=== PATIENT | female | born 1990 | race Caucasian/White ===

== ENCOUNTER → 2019-03-06 11:29 | Outpatient (CLI) | payer BC, SELFPAY ==
--- NOTE | 2019-03-06 12:24 | US_ITS ---
PROCEDURE: US TRANSVAGINAL CLINICAL INDICATION: LLQ PAIN, LT OVARIAN CYST COMPARISON: No exams were available for comparison FINDINGS: Uterus is in the and measures 7.7 x 2.4 x 4.0 centimeters. Endometrial stripe is 3.2 millimeters. There is no fluid in the cul-de-sac. Right ovary is 3.1 x 2.1 x 2.0 centimeters with small follicles and normal blood flow. Left ovary is 2.8 x 1.5 x 1.9 centimeters with a few small follicles and normal blood flow. IMPRESSION: No acute process. Bilateral ovarian follicles. Dictated by: Jasbir Shah 03/06/2019 14:10 Electronically signed by Jasbir Shah in [facility] 03/06/2019 14:10
== END ==
PROVIDERS: PCP Family Medicine; Visit Provider Family Medicine
DX: R10.32 Left lower quadrant pain (principal); N83.202 Unspecified ovarian cyst, left side
CPT/HCPCS: 76830

== ENCOUNTER → 2019-04-04 14:51 | Outpatient (CLI) | payer BC, SELFPAY ==
--- NOTE | 2019-04-04 14:58 | CT_ITS ---
PROCEDURE: CT ABDOMEN PELVIS WO CON CLINICAL INDICATION: ABD PAIN Suprapubic and left lower quadrant pain COMPARISON: No exams were available for comparison TECHNIQUE: Axial images obtained with sagittal and coronal reformats. All CT scans at the facility use one or more dose reduction, viz: automated exposure control, ma/kV adjustment per patient size (including targeted exams where dose is matched to indication, i.e. head), or iterative reconstruction technique. FINDINGS: LOWER THORAX: No acute finding ABDOMEN & PELVIS: The liver, spleen, adrenal glands, pancreas, gallbladder, and kidneys have an unremarkable unenhanced CT appearance. There is a mild amount of retained colonic feces. No intestinal obstruction or free air is evident. No evidence of appendicitis. There is some mild stranding of the fat in the left pelvic region in the left adnexal area. There is some mild stranding of the fat also in the cul-de-sac. Etiology of this is undetermined. Study is somewhat limited without IV and oral contrast. Differential diagnosis would include some mild diverticulitis however, no diverticula are apparent. Pelvic inflammatory disease would be considered as well. If symptoms persist, consider repeat exam with IV and oral contrast. No acute bony findings. IMPRESSION: 1. There is mild stranding of the fat in the left adnexal region and cul-de-sac area. Etiology is indeterminate and could be related to pelvic inflammatory disease or even diverticulitis.. Consider repeat exam with IV and oral contrast for further evaluation. 2. Mild amount of retained colonic feces Dictated by: Prashanth Davenport MD 04/04/2019 16:04 Electronically signed by Prashanth Davenport MD in [facility] 04/04/2019 16:04
== END ==
PROVIDERS: PCP Family Medicine; Visit Provider Emergency Medicine
DX: R10.2 Pelvic and perineal pain (principal); R10.9 Unspecified abdominal pain
CPT/HCPCS: 74176

== ENCOUNTER → 2019-04-10 08:25 | Outpatient (CLI) | payer BC, SELFPAY ==
--- NOTE | 2019-04-10 08:30 | CT_ITS ---
PROCEDURE: CT ABDOMEN PELVIS W CON CLINICAL INDICATION: Mild stranding of the fat in the left pelvic region Suprapubic and left lower quadrant pain, follow-up abnormal unenhanced CT of the pelvis with stranding of the fat in the left pelvic region. COMPARISON: CT ABDOMEN PELVIS WO CON from 04/04/2019 TECHNIQUE: IV Contrast: 75ML OPTIRAY 350 Oral Contrast 450ml Redicat Axial images obtained with sagittal and coronal reformats. All CT scans at the facility use one or more dose reduction, viz: automated exposure control, ma/kV adjustment per patient size (including targeted exams where dose is matched to indication, i.e. head), or iterative reconstruction technique. FINDINGS: LOWER THORAX: No acute finding ABDOMEN & PELVIS: The liver, spleen, pancreas, adrenal glands, and kidneys show no acute finding. No intestinal obstruction or free air. No evidence of appendicitis or diverticulitis. No pelvic mass, abnormal fluid collection, or focal inflammatory change of the pelvis. No acute bony anomalies.. The previously noted stranding of the fat in the left pelvic region has improved. IMPRESSION: 1. No acute abdominal or pelvic findings. 2. Previously noted inflammatory changes in the left pelvic region have improved. Dictated by: Prashanth Davenport MD 04/11/2019 08:23 Electronically signed by Prashanth Davenport MD in [facility] 04/11/2019 08:23
== END ==
PROVIDERS: PCP Family Medicine; Visit Provider Emergency Medicine
DX: R93.5 Abnormal findings on diagnostic imaging of other abdominal regions, including retroperitoneum (principal)
CPT/HCPCS: 74177; Q9967

== ENCOUNTER → 2020-03-20 09:41 | Outpatient (CLI) | payer BC, SELFPAY ==
--- NOTE | 2020-03-20 09:46 | XR_ITS ---
PROCEDURE: XR LUMBAR SPINE MIN 4V CLINICAL INDICATION: ACUTE RT SIDED LOW BACK PAIN W/ RT SIDED SCIATICA COMPARISON: No exams were available for comparison FINDINGS: There is straightening of the lumbar lordosis which could be due to patient positioning or muscle spasm. No fracture or dislocation. No lytic or blastic changes. The disc spaces are well preserved. There is minimal lumbar curvature convex right. Other findings:None. IMPRESSION: Straightening of lordosis with minimal lumbar curvature convex right otherwise negative Dictated by: Prashanth Davenport MD 03/20/2020 10:17 Prashanth Davenport MD in [facility] 03/20/2020 10:17
== END ==
PROVIDERS: PCP Family Medicine; Visit Provider Family Medicine
DX: M54.41 Lumbago with sciatica, right side (principal)
CPT/HCPCS: 72110